=== PATIENT | female | born 1935 | race Two or more races ===

== ENCOUNTER 2019-01-25 07:09 | Day surgery (SDC) | payer OTHER ==
[~2019-01-25 07:09] MED LIST: NORVASC2.5 MG PO; PLAVIX75 MG PO; TOPROL XL25 M1 PO
[2019-01-25] MEDS ORDERED: Tylenol #3 PO (13:12)
[2019-01-25] MEDS ORDERED: DOXYCYCLINE HY100 M3 PO (13:12)
== END 2019-01-25 16:35 | disposition home or self-care (01) ==
LOC: CIR.AMB 07:09
DX: N84.0 Polyp of corpus uteri (principal)

== ENCOUNTER 2019-05-03 08:34 | Outpatient (CLI) | payer OTHER ==
[~2019-05-03 08:34] MED LIST changes: +DOXYCYCLINE HY100 M3 PO; +Tylenol #3 PO
== END 2019-05-03 08:37 | disposition home or self-care (01) ==
LOC: SONOGRAMA 08:34
DX: E04.1 Nontoxic single thyroid nodule (principal)